=== PATIENT | male | born 1980 | race Caucasian/White ===

== ENCOUNTER 2016-10-27 00:25 | Inpatient (IN) | payer OTHER ==
[~2016-10-27] VITALS: Ht 188 cm; Wt 103.0 kg
[~2016-10-27 00:25] MED LIST: ALBUTEROL SULF8.5 GM IH; AMITRIPTYLINE H25 MG PO; ANAPROX DS550 M1 PO; ATARAX,VISTARIL25 MG PO; BENTYL20 MG PO; CALAN120 MG PO; CALAN80 MG PO; CELEBREX200 MG PO; CLONAZEPAM1 MG PO; DAILY VITE1 EAC1 PO; DONNATAL1 TABLET PO; Elavil PO; FLEXERIL10 MG PO; FLOVENT DISKUS1 DISK IH; FUROSEMIDE40 MG PO; GABAPENTIN600 MG PO; HYDROCODON-ACE1 EA11 PO; INDERAL40 MG PO; KLONOPIN1 M2 PO; KLONOPIN2 MG PO; LIDOCAINE700 MG TD; LISINOPRIL-HCT1 EAC3 PO; LITHIUM CARBON300 MG PO; LYRICA100 MG PO; MOBIC15 MG PO; MULTI-VITAMIN1 EAC4 PO; NEOSPORIN + P14.2 GM TP; NEURONTIN600 MG PO; NORCO 5/3251 TABLET PO; OMEPRAZOLE20 MG PO; OXYCODONE-ACET1 EACH PO; PREDNISONE20 MG PO; PRINZIDE 20-121 EACH PO; QUETIAPINE FUM100 MG PO; RANITIDINE HCL150 M1 PO; REGLAN10 MG PO; ROBITUSSIN100 MG/5 M PO; SEROQUEL12.5 MG PO; SEROQUEL50 MG PO; TOPAMAX25 MG PO; VERAPAMIL HCL120 M2 PO; VERAPAMIL HCL120 MG PO; VERAPAMIL HCL80 MG PO; ZESTRIL,PRINIVI20 MG PO
[2016-10-27 01:50] LABS: ADD MIUA? YES; BILIRUBIN NEGATIVE; BLOOD NEGATIVE; COLOR YELLOW ((YELLOW)); GLUCOSE (STRIP) NEGATIVE; KETONES NEGATIVE; LEUKOCYTES TRACE; NITRITE NEGATIVE; PROTEIN (STRIP) 30; SPECIFIC GRAVITY 1.025 (1.000-1.030)
[2016-10-27 01:57] LABS: MCH 32.7 PG (29.0-34.0); MCHC 34.7 G/DL (30.0-36.0); MCV 94.3 FL (86-99); PLATELET COUNT 266 K/uL (156-360); RBC DIS.WIDTH-CV 12.5 % (11.8-14.6); RBC DIS.WIDTH-SD 43.8 % (39-53); RED BLOOD COUNT 4.77 M/uL (4.00-5.50); WHITE BLOOD COUNT 9.4 K/uL (4.1-10.2)
[2016-10-27 01:57] LABS: BACTERIA NONE SEEN /HPF; EPITHELIAL CELLS RARE /HPF; HYALINE CASTS 0-5 /LPF; MUCUS TRACE /LPF; RED BLOOD CELLS 0-5 /HPF (0-5); UCUL ADDED? NO
[2016-10-27 02:00] LABS: ADD MEDTOX COMMENT Y; AMPHETAMINE NEGATIVE (500 ng/mL); BARBITURATES NEGATIVE (200 ng/mL); BENZODIAZEPINES PRESUMPTIVE POSITIVE (150 ng/mL); COCAINE NEGATIVE (150 ng/mL); INTERNAL CONTROLS VALID? YES; METHADONE NEGATIVE (200 ng/mL); METHAMPHETAMINE NEGATIVE (500 ng/mL); OPIATES (MORPHINE) NEGATIVE (100 ng/mL); OXYCODONE PRESUMPTIVE POSITIVE (100 ng/mL); PHENCYCLIDINE NEGATIVE (25 ng/mL); PROPOXYPHENE NEGATIVE (300 ng/mL); THC CANNABINOIDS PRESUMPTIVE POSITIVE (50 ng/mL); TRICYCLIC ANTIDEPRESSANTS NEGATIVE (300 ng/mL)
[2016-10-27 02:11] LABS: CHLORIDE 106 mEq/L (99-109); POTASSIUM 3.7 mEq/L (3.7-5.4); SODIUM 139 mEq/L (136-147)
[2016-10-27 02:13] LABS: GLUCOSE 99 mg/dL (70-99)
[2016-10-27 02:14] LABS: ANION GAP 7 MEQ/L (2-14)
[2016-10-27 02:16] LABS: GFR ESTIMATE (CALCULATED) > 59 mL/min/; SERUM ETHYL ALCOHOL < 10 mg/dL
[2016-10-27 02:17] LABS: UREA NITROGEN (BUN) 13 mg/dL (9-23)
[2016-10-27 04:02] LABS: BENZODIAZEPINES, URINE SCREEN POSITIVE (200 ng/mL)
[2016-10-27 05:21] VITALS: BP 114/60
[2016-10-27 07:34] VITALS: BP 131/64
[2016-10-27 16:24] VITALS: BP 109/72
[2016-10-28 07:50] VITALS: BP 86/51
[2016-10-28 08:43] VITALS: BP 98/53
[2016-10-28 15:31] VITALS: BP 103/54
[2016-10-29] MEDS ORDERED: MOTRIN600 MG PO (04:56)
[2016-10-29] MEDS ORDERED: LIDOCAINE700 MG TD (04:56)
== END 2016-10-28 22:45 | disposition home or self-care (01) | DRG 881 ==
LOC: EME 00:25 → EDOF 02:57 → 1WEST 02:57
PROVIDERS: Emergency Medicine
DX: F32.9 Major depressive disorder, single episode, unspecified (principal); R45.851 Suicidal ideations; F60.9 Personality disorder, unspecified; I10 Essential (primary) hypertension; G43.909 Migraine, unspecified, not intractable, without status migrainosus; F12.90 Cannabis use, unspecified, uncomplicated; F17.200 Nicotine dependence, unspecified, uncomplicated; Z88.8 Allergy status to other drugs, medicaments and biological substances
CPT/HCPCS: 73080; 80048; 81003; 84999; 85027; 90839; 97150 GO; 97166 GO; 99281; 99285; G0480

== ENCOUNTER 2016-10-28 23:26 | Emergency (ER) | payer OTHER ==
[~2016-10-28] VITALS: Ht 188 cm; Wt 102.2 kg
[2016-10-29] MEDS ORDERED: MOTRIN600 MG PO (04:56)
[2016-10-29] MEDS ORDERED: LIDOCAINE700 MG TD (04:56)
[2016-10-29 05:31] VITALS: BP 115/76
== END 2016-10-29 05:33 | disposition home or self-care (01) ==
LOC: EME 23:26
DX: S40.012A Contusion of left shoulder, initial encounter (principal); S20.211A Contusion of right front wall of thorax, initial encounter; F32.9 Major depressive disorder, single episode, unspecified; F60.9 Personality disorder, unspecified; F43.10 Post-traumatic stress disorder, unspecified; Y35.811A Legal intervention involving manhandling, law enforcement official injured, initial encounter; Y92.230 Patient room in hospital as the place of occurrence of the external cause; M79.641 Pain in right hand; M79.642 Pain in left hand; F17.200 Nicotine dependence, unspecified, uncomplicated; Z87.442 Personal history of urinary calculi
CPT/HCPCS: 71020; 72070; 72100; 73030; 73130; 99281; 99284

== ENCOUNTER 2016-12-13 12:04 | Emergency (ER) | payer OTHER ==
[~2016-12-13] VITALS: Ht 188 cm; Wt 102.4 kg
[~2016-12-13 12:04] MED LIST changes: +MOTRIN600 MG PO
[2016-12-13 15:52] VITALS: BP 138/91
== END 2016-12-13 15:53 | disposition home or self-care (01) ==
LOC: EME 12:04
DX: R51 Headache (principal); H53.149 Visual discomfort, unspecified; J34.89 Other specified disorders of nose and nasal sinuses; H57.8 Other specified disorders of eye and adnexa; I10 Essential (primary) hypertension; F17.200 Nicotine dependence, unspecified, uncomplicated
CPT/HCPCS: 70450; 99281; 99284; J1100; J1885

== ENCOUNTER 2017-06-27 21:28 | Inpatient (IN) | payer OTHER ==
[~2017-06-27] VITALS: Ht 188 cm; Wt 95.9 kg
[2017-06-27 22:10] LABS: APPEARANCE CLEAR ((CLEAR)); BILIRUBIN NEGATIVE; BLOOD LARGE; COLOR YELLOW ((YELLOW)); GLUCOSE (STRIP) NEGATIVE; KETONES NEGATIVE; LEUKOCYTES NEGATIVE; NITRITE NEGATIVE; PROTEIN (STRIP) 30; SPECIFIC GRAVITY 1.019 (1.000-1.030)
[2017-06-27 22:21] LABS: HEMATOCRIT 42.5 % (38.0-50.0); HEMOGLOBIN 15.2 G/DL (12.5-16.6); MCH 34.2 PG (29.0-34.0); MCHC 35.8 G/DL (30.0-36.0); MCV 95.5 FL (86-99); PLATELET COUNT 229 K/uL (156-360); RBC DIS.WIDTH-CV 12.2 % (11.8-14.6); RBC DIS.WIDTH-SD 43.4 % (39-53); RED BLOOD COUNT 4.45 M/uL (4.00-5.50); WHITE BLOOD COUNT 10.2 K/uL (4.1-10.2)
[2017-06-27 22:23] LABS: BACTERIA NONE SEEN /HPF; CALCIUM OXALATE CRYSTALS 1+ /HPF; EPITHELIAL CELLS RARE /HPF; MUCUS TRACE /LPF; RED BLOOD CELLS TNTC /HPF (0-5); UCUL ADDED? YES; WHITE BLOOD CELLS 0-5 /HPF (0-5)
[2017-06-27 22:24] LABS: AMPHETAMINE NEGATIVE (500 ng/mL); BARBITURATES NEGATIVE (200 ng/mL); BENZODIAZEPINES NEGATIVE (150 ng/mL); BUPRENORPHINE NEGATIVE (10 ng/mL); COCAINE NEGATIVE (150 ng/mL); METHADONE NEGATIVE (200 ng/mL); METHAMPHETAMINE NEGATIVE (500 ng/mL); OPIATES (MORPHINE) NEGATIVE (100 ng/mL); OXYCODONE NEGATIVE (100 ng/mL); PHENCYCLIDINE NEGATIVE (25 ng/mL); PROPOXYPHENE NEGATIVE (300 ng/mL); THC CANNABINOIDS PRESUMPTIVE POSITIVE (50 ng/mL); TRICYCLIC ANTIDEPRESSANTS NEGATIVE (300 ng/mL)
[2017-06-27 22:32] LABS: CHLORIDE 107 mEq/L (99-109); POTASSIUM 3.6 mEq/L (3.7-5.4); SODIUM 142 mEq/L (136-147)
[2017-06-27 22:34] LABS: GLUCOSE 107 mg/dL (70-99)
[2017-06-27 22:37] LABS: SERUM ETHYL ALCOHOL < 10 mg/dL
[2017-06-27 22:38] LABS: CREATININE 0.8 mg/dL (0.6-1.3); GFR ESTIMATE (CALCULATED) > 59 mL/min/ (58.99-99999)
[2017-06-27 22:39] LABS: UREA NITROGEN (BUN) 13 mg/dL (9-23)
[2017-06-27] MEDS ORDERED: DEPAKOTE ER500 MG PO (23:02)
[2017-06-28 00:31] VITALS: BP 126/67
[2017-06-28 07:53] VITALS: BP 121/60
[2017-06-28 15:38] VITALS: BP 122/69
[2017-06-28 23:53] VITALS: BP 94/52
[2017-06-29 04:27] VITALS: BP 100/58
[2017-06-29 06:05] VITALS: BP 114/66
[2017-06-29 07:46] VITALS: BP 107/64
[2017-06-29 10:48] VITALS: BP 126/67
[2017-06-29 15:38] VITALS: BP 102/55
[2017-06-30 07:44] VITALS: BP 102/50
[2017-06-30 13:32] VITALS: BP 95/51
[2017-06-30 15:25] VITALS: BP 114/68
[2017-07-01 07:30] VITALS: BP 106/59
[2017-07-01 08:50] VITALS: BP 130/75
[2017-07-01 15:30] VITALS: BP 100/57
[2017-07-02 07:37] VITALS: BP 122/74
[2017-07-02 15:34] VITALS: BP 124/81
[2017-07-03 07:51] VITALS: BP 109/68
[2017-07-03] MEDS ORDERED: CLONAZEPAM0.5 MG PO (09:38)
[2017-07-03] MEDS ORDERED: VERAPAMIL HCL120 MG PO (09:38)
[2017-07-03] MEDS ORDERED: SINEQUAN50 MG PO (09:41)
== END 2017-07-03 11:09 | disposition home or self-care (01) | DRG 885 ==
LOC: EME 21:28 → 1WEST 22:49 → EDOF 22:49 → ENRESERV 22:51 → CANRESERV 22:51 → EDOF 06-28 00:13 → 1WEST 06-28 00:15
PROVIDERS: Emergency Medicine
DX: F33.1 Major depressive disorder, recurrent, moderate (principal); F60.9 Personality disorder, unspecified; F17.200 Nicotine dependence, unspecified, uncomplicated; R45.851 Suicidal ideations; F13.20 Sedative, hypnotic or anxiolytic dependence, uncomplicated; F43.10 Post-traumatic stress disorder, unspecified; Z88.8 Allergy status to other drugs, medicaments and biological substances; I10 Essential (primary) hypertension; F12.90 Cannabis use, unspecified, uncomplicated; Z81.8 Family history of other mental and behavioral disorders; Z79.899 Other long term (current) drug therapy; N20.0 Calculus of kidney; Z87.442 Personal history of urinary calculi; R31.9 Hematuria, unspecified
CPT/HCPCS: 74176; 80048; 80164; 81003; 84999; 85027; 87086; 90839; 97150 GO; 97165 GO; 99281; 99285; G0480

== ENCOUNTER 2017-09-10 20:33 | Emergency (ER) | payer OTHER ==
[~2017-09-10] VITALS: Ht 188 cm; Wt 111.1 kg
[~2017-09-10 20:33] MED LIST changes: +CLONAZEPAM0.5 MG PO; +DEPAKOTE ER500 MG PO; +SINEQUAN50 MG PO
[2017-09-10] MEDS ORDERED: VERAPAMIL HCL120 MG PO (21:38)
[2017-09-10] MEDS ORDERED: WELLBUTRIN XL150 MG PO (21:39)
[2017-09-10] MEDS ORDERED: CLONAZEPAM2 MG PO (21:40)
[2017-09-10] MEDS ORDERED: GABAPENTIN600 MG PO (21:40)
[2017-09-10] MEDS ORDERED: PRAZOSIN HCL1 MG PO (21:41)
[2017-09-10] MEDS ORDERED: SEROQUEL300 MG PO (21:41)
[2017-09-10] MEDS ORDERED: METOCLOPRAMIDE10 MG PO (21:42)
[2017-09-10] MEDS ORDERED: DEPAKOTE ER500 MG PO (21:42)
[2017-09-10] MEDS ORDERED: IMITREX50 MG PO (21:43)
[2017-09-10 23:43] LABS: APPEARANCE CLEAR ((CLEAR)); BILIRUBIN NEGATIVE; BLOOD SMALL; COLOR YELLOW ((YELLOW)); GLUCOSE (STRIP) NEGATIVE; KETONES NEGATIVE; LEUKOCYTES NEGATIVE; NITRITE NEGATIVE; PROTEIN (STRIP) NEGATIVE; SPECIFIC GRAVITY 1.009 (1.000-1.030); UROBILINOGEN 0.2 MG/DL (0.2-1.0)
[2017-09-10 23:46] LABS: BACTERIA NONE SEEN /HPF; EPITHELIAL CELLS NONE SEEN /HPF; MUCUS NONE SEEN /LPF; UCUL ADDED? NO; WHITE BLOOD CELLS 0-5 /HPF (0-5)
[2017-09-10 23:49] LABS: HEMATOCRIT 43.4 % (38.0-50.0); HEMOGLOBIN 15.6 G/DL (12.5-16.6); MCH 34.2 PG (29.0-34.0); MCHC 35.9 G/DL (30.0-36.0); PLATELET COUNT 270 K/uL (156-360); RBC DIS.WIDTH-CV 12.3 % (11.8-14.6); RBC DIS.WIDTH-SD 43.3 % (39-53); RED BLOOD COUNT 4.56 M/uL (4.00-5.50)
[2017-09-10 23:51] LABS: MCV 95.2 FL (86-99)
[2017-09-10 23:53] LABS: AMPHETAMINE NEGATIVE (500 ng/mL); BARBITURATES NEGATIVE (200 ng/mL); BENZODIAZEPINES NEGATIVE (150 ng/mL); BUPRENORPHINE NEGATIVE (10 ng/mL); COCAINE NEGATIVE (150 ng/mL); METHADONE NEGATIVE (200 ng/mL); METHAMPHETAMINE NEGATIVE (500 ng/mL); OPIATES (MORPHINE) NEGATIVE (100 ng/mL); OXYCODONE NEGATIVE (100 ng/mL); PHENCYCLIDINE NEGATIVE (25 ng/mL); PROPOXYPHENE NEGATIVE (300 ng/mL); THC CANNABINOIDS PRESUMPTIVE POSITIVE (50 ng/mL); TRICYCLIC ANTIDEPRESSANTS NEGATIVE (300 ng/mL)
[2017-09-10 23:58] LABS: CHLORIDE 104 mEq/L (99-109); POTASSIUM 3.8 mEq/L (3.7-5.4)
[2017-09-10 23:59] LABS: SODIUM 139 mEq/L (136-147)
[2017-09-11] LABS: GLUCOSE 81 mg/dL (70-99)
[2017-09-11 00:03] LABS: SERUM ETHYL ALCOHOL < 10 mg/dL
[2017-09-11 00:04] LABS: CREATININE 0.8 mg/dL (0.6-1.3); GFR ESTIMATE (CALCULATED) > 59 mL/min/ (58.99-99999)
[2017-09-11 00:05] LABS: UREA NITROGEN (BUN) 10 mg/dL (9-23)
[2017-09-11 05:00] VITALS: BP 115/56
== END 2017-09-11 05:22 ==
LOC: EME 20:33
PROVIDERS: Emergency Medicine
DX: F33.2 Major depressive disorder, recurrent severe without psychotic features (principal); R45.851 Suicidal ideations; F43.10 Post-traumatic stress disorder, unspecified; I10 Essential (primary) hypertension; G43.909 Migraine, unspecified, not intractable, without status migrainosus; F17.200 Nicotine dependence, unspecified, uncomplicated; Z87.442 Personal history of urinary calculi; Z88.8 Allergy status to other drugs, medicaments and biological substances
CPT/HCPCS: 80048; 81003; 84999; 85027; 90837; 99281; 99285; G0480

== ENCOUNTER 2017-10-09 20:41 | Inpatient (IN) | payer OTHER ==
[~2017-10-09] VITALS: Ht 188 cm; Wt 108.0 kg
[~2017-10-09 20:41] MED LIST changes: +CLONAZEPAM2 MG PO; +IMITREX50 MG PO; +METOCLOPRAMIDE10 MG PO; +PRAZOSIN HCL1 MG PO; +SEROQUEL300 MG PO; +WELLBUTRIN XL150 MG PO
[2017-10-09 21:44] LABS: HEMATOCRIT 43.1 % (38.0-50.0); HEMOGLOBIN 15.2 G/DL (12.5-16.6); MCH 34.2 PG (29.0-34.0); MCHC 35.3 G/DL (30.0-36.0); MCV 96.9 FL (86-99); PLATELET COUNT 231 K/uL (156-360); RBC DIS.WIDTH-CV 12.4 % (11.8-14.6); RBC DIS.WIDTH-SD 44.4 % (39-53); RED BLOOD COUNT 4.45 M/uL (4.00-5.50); WHITE BLOOD COUNT 10.9 K/uL (4.1-10.2)
[2017-10-09 21:55] LABS: CHLORIDE 106 mEq/L (99-109); SODIUM 142 mEq/L (136-147)
[2017-10-09 21:58] LABS: GLUCOSE 74 mg/dL (70-99); TOTAL PROTEIN 6.5 g/dL (6.4-8.3)
[2017-10-09 21:59] LABS: TOTAL BILIRUBIN 0.7 mg/dL (0.0-1.0)
[2017-10-09 22:01] LABS: ALKALINE PHOSPHATASE 49 IU/L (3-129); CREATININE 0.9 mg/dL (0.6-1.3); GFR ESTIMATE (CALCULATED) > 59 mL/min/ (58.99-99999); SERUM ETHYL ALCOHOL < 10 mg/dL
[2017-10-09 22:02] LABS: UREA NITROGEN (BUN) 13 mg/dL (9-23)
[2017-10-09 22:03] LABS: AST (GOT) 15 IU/L (2-34)
[2017-10-09 22:04] LABS: ALT (GPT) 11 IU/L (3-49)
[2017-10-09 22:29] LABS: AMPHETAMINE NEGATIVE (500 ng/mL); BARBITURATES NEGATIVE (200 ng/mL); BENZODIAZEPINES NEGATIVE (150 ng/mL); BUPRENORPHINE NEGATIVE (10 ng/mL); COCAINE NEGATIVE (150 ng/mL); METHADONE NEGATIVE (200 ng/mL); METHAMPHETAMINE NEGATIVE (500 ng/mL); OPIATES (MORPHINE) NEGATIVE (100 ng/mL); OXYCODONE NEGATIVE (100 ng/mL); PHENCYCLIDINE NEGATIVE (25 ng/mL); PROPOXYPHENE NEGATIVE (300 ng/mL); THC CANNABINOIDS PRESUMPTIVE POSITIVE (50 ng/mL); TRICYCLIC ANTIDEPRESSANTS NEGATIVE (300 ng/mL)
[2017-10-09] MEDS ORDERED: VERAPAMIL HCL120 MG PO (23:04)
[2017-10-09] MEDS ORDERED: CLONAZEPAM1 MG PO (23:06)
[2017-10-09] MEDS ORDERED: METOCLOPRAMIDE10 MG PO (23:08)
[2017-10-09] MEDS ORDERED: TYLENOL325 M2 PO (23:24)
[2017-10-09] MEDS ORDERED: MIRALAX17 GM PO (23:24)
[2017-10-09] MEDS ORDERED: NICODERM CQ1 EAC2 TD (23:25)
[2017-10-10 00:45] VITALS: BP 115/79
[2017-10-10 08:00] VITALS: BP 87/50
[2017-10-10 13:13] VITALS: BP 138/80
[2017-10-10 16:42] VITALS: BP 104/58
[2017-10-11 07:51] VITALS: BP 129/68
[2017-10-11 17:09] VITALS: BP 124/58
[2017-10-12 08:06] VITALS: BP 127/69
[2017-10-12] MEDS ORDERED: CLONAZEPAM0.5 MG PO (09:15)
[2017-10-12] MEDS ORDERED: RISPERDAL2 MG PO (09:16)
== END 2017-10-12 11:03 | disposition home or self-care (01) | DRG 885 ==
LOC: EME 20:41 → EDOF 23:08 → 1WEST 23:08 → ENRESERV 10-10 00:05 → 1WEST 10-10 00:12
PROVIDERS: Emergency Medicine
DX: F33.1 Major depressive disorder, recurrent, moderate (principal); F13.20 Sedative, hypnotic or anxiolytic dependence, uncomplicated; I10 Essential (primary) hypertension; R45.851 Suicidal ideations; F12.10 Cannabis abuse, uncomplicated; F17.200 Nicotine dependence, unspecified, uncomplicated; F41.0 Panic disorder [episodic paroxysmal anxiety]; Z91.5 Personal history of self-harm; F60.9 Personality disorder, unspecified; Z81.8 Family history of other mental and behavioral disorders
CPT/HCPCS: 80053; 81003; 84999; 85027; 90837; 97150 GO; 97165 GO; 99281; 99285; G0480

== ENCOUNTER 2017-10-14 17:40 | Inpatient (IN) | payer OTHER ==
[~2017-10-14] VITALS: Ht 188 cm; Wt 118.0 kg
[~2017-10-14 17:40] MED LIST changes: +MIRALAX17 GM PO; +NICODERM CQ1 EAC2 TD; +RISPERDAL2 MG PO; +TYLENOL325 M2 PO
[2017-10-14 18:51] LABS: APPEARANCE CLOUDY ((CLEAR)); BILIRUBIN NEGATIVE; BLOOD NEGATIVE; COLOR YELLOW ((YELLOW)); GLUCOSE (STRIP) NEGATIVE; KETONES NEGATIVE; LEUKOCYTES NEGATIVE; NITRITE NEGATIVE; PROTEIN (STRIP) NEGATIVE; SPECIFIC GRAVITY 1.018 (1.000-1.030)
[2017-10-14 18:58] LABS: CHLORIDE 110 mEq/L (99-109); HEMATOCRIT 44.5 % (38.0-50.0); HEMOGLOBIN 15.7 G/DL (12.5-16.6); MCHC 35.3 G/DL (30.0-36.0); MCV 96.3 FL (86-99); PLATELET COUNT 212 K/uL (156-360); POTASSIUM 3.8 mEq/L (3.7-5.4); RBC DIS.WIDTH-CV 12.5 % (11.8-14.6); RBC DIS.WIDTH-SD 43.8 % (39-53); RED BLOOD COUNT 4.62 M/uL (4.00-5.50); SODIUM 144 mEq/L (136-147); WHITE BLOOD COUNT 9.6 K/uL (4.1-10.2)
[2017-10-14 19:00] LABS: GLUCOSE 79 mg/dL (70-99)
[2017-10-14 19:03] LABS: SERUM ETHYL ALCOHOL < 10 mg/dL
[2017-10-14 19:04] LABS: CREATININE 0.7 mg/dL (0.6-1.3); GFR ESTIMATE (CALCULATED) > 59 mL/min/ (58.99-99999)
[2017-10-14 19:05] LABS: UREA NITROGEN (BUN) 10 mg/dL (9-23)
[2017-10-14 19:19] LABS: AMPHETAMINE NEGATIVE (500 ng/mL); BARBITURATES NEGATIVE (200 ng/mL); BENZODIAZEPINES NEGATIVE (150 ng/mL); BUPRENORPHINE NEGATIVE (10 ng/mL); COCAINE NEGATIVE (150 ng/mL); METHADONE NEGATIVE (200 ng/mL); METHAMPHETAMINE NEGATIVE (500 ng/mL); OPIATES (MORPHINE) NEGATIVE (100 ng/mL); OXYCODONE NEGATIVE (100 ng/mL); PHENCYCLIDINE NEGATIVE (25 ng/mL); PROPOXYPHENE NEGATIVE (300 ng/mL); THC CANNABINOIDS NEGATIVE (50 ng/mL); TRICYCLIC ANTIDEPRESSANTS NEGATIVE (300 ng/mL)
[2017-10-14 19:20] LABS: EPITHELIAL CELLS NONE SEEN /HPF; RED BLOOD CELLS 0-5 /HPF (0-5); WHITE BLOOD CELLS 0-5 /HPF (0-5)
[2017-10-14 19:21] LABS: BACTERIA RARE /HPF; MUCUS RARE /LPF
[2017-10-15 03:21] LABS: VALPROIC ACID (DEPAKOTE) 15.9 MCG/ML (50-100)
[2017-10-15 12:53] VITALS: BP 135/78
[2017-10-15 12:57] VITALS: BP 135/78
[2017-10-15 16:40] VITALS: BP 125/66
[2017-10-16 08:01] VITALS: BP 116/66
[2017-10-16 16:22] VITALS: BP 139/77
[2017-10-17 07:43] VITALS: BP 133/80
[2017-10-17 15:29] VITALS: BP 119/65
== END 2017-10-17 20:07 | disposition home or self-care (01) | DRG 885 ==
LOC: EME 17:40 → 1WEST 10-15 11:02 → EDOF 10-15 11:02 → 1WEST 10-15 12:49 → ENRESERV 10-15 12:49 → 1WEST 10-17 20:07
PROVIDERS: Nurse Practitioner Family
DX: F33.1 Major depressive disorder, recurrent, moderate (principal); F41.0 Panic disorder [episodic paroxysmal anxiety]; F13.20 Sedative, hypnotic or anxiolytic dependence, uncomplicated; F12.10 Cannabis abuse, uncomplicated; R45.851 Suicidal ideations; G89.29 Other chronic pain; F17.200 Nicotine dependence, unspecified, uncomplicated; I10 Essential (primary) hypertension; Z81.8 Family history of other mental and behavioral disorders; Z91.5 Personal history of self-harm; Z79.891 Long term (current) use of opiate analgesic; Z91.14 Patient's other noncompliance with medication regimen
CPT/HCPCS: 80048; 80164; 81003; 85027; 90837; 99281; 99285; G0480; J3486; Q0177

== ENCOUNTER 2017-11-20 12:40 | Emergency (ER) | payer OTHER ==
[~2017-11-20] VITALS: Ht 188 cm; Wt 113.1 kg
[2017-11-20] MEDS ORDERED: ATARAX,VISTARIL25 MG PO (14:52)
[2017-11-20] MEDS ORDERED: KLONOPIN0.5 M1 PO (14:52)
[2017-11-20 15:05] VITALS: BP 130/78
== END 2017-11-20 14:53 | disposition home or self-care (01) ==
LOC: EME 12:40
DX: F41.0 Panic disorder [episodic paroxysmal anxiety] (principal); I10 Essential (primary) hypertension; F41.9 Anxiety disorder, unspecified; F43.10 Post-traumatic stress disorder, unspecified; F17.200 Nicotine dependence, unspecified, uncomplicated; Z87.442 Personal history of urinary calculi; Z98.890 Other specified postprocedural states; Z88.8 Allergy status to other drugs, medicaments and biological substances
CPT/HCPCS: 99281; 99284

== ENCOUNTER 2018-01-11 20:10 | Emergency (ER) | payer OTHER ==
[~2018-01-11] VITALS: Ht 188 cm; Wt 117.7 kg
[~2018-01-11 20:10] MED LIST changes: +KLONOPIN0.5 M1 PO
[2018-01-11 20:46] LABS: BASOPHIL (%) 0.3 % (0-1); BASOPHIL COUNT 0.1 K/uL (0-0.1); EOSINOPHIL (%) 0 % (0-5); HEMATOCRIT 46.3 % (38.0-50.0); HEMOGLOBIN 16.6 G/DL (12.5-16.6); IMMATURE GRANULOCYTE (%) 0.5 % (0.0-0.7); LYMPHOCYTE (%) 22.5 % (15-42); MCH 34.8 PG (29.0-34.0); MCHC 35.9 G/DL (30.0-36.0); MCV 97.1 FL (86-99); MONOCYTE (%) 5.5 % (3-12); NEUTROPHIL (%) 71.2 % (45-76); NEUTROPHIL COUNT 12.5 K/uL (1.8-6.4); PLATELET COUNT 293 K/uL (156-360); RBC DIS.WIDTH-CV 12.4 % (11.8-14.6); RBC DIS.WIDTH-SD 44.6 % (39-53); RED BLOOD COUNT 4.77 M/uL (4.00-5.50); WHITE BLOOD COUNT 17.6 K/uL (4.1-10.2)
[2018-01-11 20:53] LABS: ALBUMIN 4.5 g/dL (3.2-4.8)
[2018-01-11 20:54] LABS: CHLORIDE 105 mEq/L (99-109); POTASSIUM 3.7 mEq/L (3.7-5.4); SODIUM 141 mEq/L (136-147)
[2018-01-11 20:56] LABS: GLUCOSE 94 mg/dL (70-99); TOTAL PROTEIN 7.3 g/dL (6.4-8.3)
[2018-01-11 20:58] LABS: TOTAL BILIRUBIN 0.8 mg/dL (0.0-1.0)
[2018-01-11 20:59] LABS: ALKALINE PHOSPHATASE 41 IU/L (3-129); SERUM ETHYL ALCOHOL < 10 mg/dL
[2018-01-11 21:00] LABS: CREATININE 0.8 mg/dL (0.6-1.3); GFR ESTIMATE (CALCULATED) > 59 mL/min/ (58.99-99999)
[2018-01-11 21:01] LABS: AST (GOT) 17 IU/L (2-34); UREA NITROGEN (BUN) 16 mg/dL (9-23)
[2018-01-11 21:03] LABS: ALT (GPT) 27 IU/L (3-49); LIPASE 60 U/L (1.0-51.0)
[2018-01-11 21:42] LABS: APPEARANCE CLEAR ((CLEAR)); BILIRUBIN NEGATIVE; BLOOD NEGATIVE; COLOR YELLOW ((YELLOW)); GLUCOSE (STRIP) NEGATIVE; KETONES NEGATIVE; LEUKOCYTES NEGATIVE; NITRITE NEGATIVE; PROTEIN (STRIP) 30; SPECIFIC GRAVITY 1.017 (1.000-1.030); UCUL ADDED? NO
[2018-01-11 21:51] LABS: AMPHETAMINE NEGATIVE (500 ng/mL); BARBITURATES NEGATIVE (200 ng/mL); BENZODIAZEPINES NEGATIVE (150 ng/mL); BUPRENORPHINE NEGATIVE (10 ng/mL); COCAINE NEGATIVE (150 ng/mL); METHADONE NEGATIVE (200 ng/mL); METHAMPHETAMINE NEGATIVE (500 ng/mL); OPIATES (MORPHINE) NEGATIVE (100 ng/mL); OXYCODONE NEGATIVE (100 ng/mL); PHENCYCLIDINE NEGATIVE (25 ng/mL); PROPOXYPHENE NEGATIVE (300 ng/mL); THC CANNABINOIDS PRESUMPTIVE POSITIVE (50 ng/mL); TRICYCLIC ANTIDEPRESSANTS PRESUMPTIVE POSITIVE (300 ng/mL)
[2018-01-12 00:11] VITALS: BP 145/96
== END 2018-01-12 00:11 | disposition left against medical advice (07) ==
LOC: EME 20:10
PROVIDERS: Emergency Medicine
DX: F41.9 Anxiety disorder, unspecified (principal); F13.239 Sedative, hypnotic or anxiolytic dependence with withdrawal, unspecified; I10 Essential (primary) hypertension; Z91.5 Personal history of self-harm; F17.200 Nicotine dependence, unspecified, uncomplicated; Z87.442 Personal history of urinary calculi; Z88.8 Allergy status to other drugs, medicaments and biological substances
CPT/HCPCS: 80053; 81003; 83690; 84999; 85025; 90839; 93005; 99281; 99285; G0480; J2060; J7030